=== PATIENT | female | born 2000 | race Caucasian/White ===

== ENCOUNTER 2025-03-23 08:24 | Outpatient (AMB) | payer OTHER, SELFPAY ==
[2025-03-23 08:26] VITALS: BP 110/70; PULSE 52; O2SAT 100; BMI 26.5
--- NOTE | 2025-03-23 08:26 | A.OFFVIS_ITS ---
Vital Signs 03/23/25 08:26 Height 5 ft 6 in Weight 164 lb 3.91 oz BMI 26.5 BP 110/70 Blood Pressure Location Rt brachial Position Sitting Pulse 52 Pulse Source Pulse Oximeter Pulse Oximetry (%) 100 Oxygen Delivery Method Room Air Intake Visit Reasons: 3 mo follow up Intake Note: Patient presents for follow up on Raynaud's today. Accompanied by: Self / Same As Patient Allergies No Known Allergies Allergy (Verified 02/24/25 12:59) HPI HPI 3 mo follow up: Details: She is experiencing soreness in her joints particularly in her hands and her shoulder. She has history of right shoulder dislocation in the past and has gone to physical therapy on multiple occasions. Morning stiffness lasts 30 minutes to an hour. No joint swelling. Raynaud's syndrome has been controlled since last visit. In the past she has taken sildenafil 20 mg daily and sometimes twice a day to control Raynaud's syndrome. In the past she was on nifedipine up to 90 mg daily without control of Raynaud's syndrome. She denies fevers, dyspnea, pleurisy, chest pain, oral ulcers, rash, urinary symptoms. Review of Systems Const All systems reviewed & are unremarkable except as noted in HPI and below Physical Exam Vital Signs: Last Vital Signs Pulse 52 03/23/25 08:26 BP 110/70 03/23/25 08:26 Pulse Ox 100 03/23/25 08:26 Oxygen Delivery Method Room Air 03/23/25 08:26 BMI result Body Mass Index 26.5 Const Other: General: Comfortable CVS: RRR Respiratory: clear to auscultation bilaterally. Good respiratory effort Skin: No lesions seen MSK: No tenderness of any joints. No synovitis. Normal range of motion of upper extremities and lower extremities. Assessment & Plan Assessment & Plan (1) Mixed connective tissue disease: Comment: In remission on hydroxychloroquine and Benlysta. Labs from December 2024 reviewed leukopenia and mild elevation in AST, which she did not have on August 2024 labs. She had alcohol prior to lab draw contributing to mild justin saminitis. We discussed importance of avoiding alcohol with her current immunosuppressive regimen. 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 Failed rituximab 2019. Previously treated with triple therapy with hydroxychloroquine, methotrexate and Benlysta from 2020 to present. Hydroxychloroquine restarted 03/20/2024. Last surveillance exam 06/19/2024 but OCT and visual field was not performed. Code(s): M35.1 - Other overlap syndromes Category: Medical Plan: Labs to assess disease and drug monitoring on high-risk medication ordered Continue Benlysta IV infusions every 4 weeks. Continue hydroxychloroquine 300 mg daily. She has an eye exam scheduled in May 2025. I have requested that she ensure that OCT and visual field test is performed. I am requesting last eye exam clinic note with OCT and visual field testing Return to clinic in 3 months (2) Raynaud disease without gangrene: Comment: Controlled with sildenafil 20 mg daily or b.i.d. previously failed nifedipine. Code(s): I73.00 - Raynaud's syndrome without gangrene Category: Medical Plan: Continue sildenafil 20 mg up to twice a day Continue conservative management with wearing gloves and thick socks in the winter Return to clinic in 3 months Orders: Orders Complement C3 Today M35.1 - Other overlap syndromes Complement C4 Today M35.1 - Other overlap syndromes Protein Creatinine Ratio, Ur Today M35.1 - Other overlap syndromes UA w Microscopic Today M35.1 - Other overlap syndromes Alanine Aminotransferase Today M35.1 - Other overlap syndromes Complete Blood Count Auto Diff Today Z79.60 - retirement (current) use of unspecified immunomodulators and immunosuppressants Creatinine Today Z79.60 - retirement (current) use of unspecified immunomodulators and immunosuppressants Anti DNA DS Antibody Today M35.1 - Other overlap syndromes C Reactive Protein Today M35.1 - Other overlap syndromes Erythrocyte Sedimentation Rate Today M35.1 - Other overlap syndromes Aspartate Amino Transferase Today M35.1 - Other overlap syndromes Coding Level of Care Code Est Pt Level 4 (24299) Complex EM visit Add On G2211 Diagnoses Mixed connective tissue disease M35.1 Raynaud disease without gangrene I73.00
--- OUTSIDE RECORDS SUMMARY | 2025-03-23 08:44 | XMS_ITS | Encounter Summary ---
Author Organization [facility] Address [address] [place] [address] Phone Care Team Providers Care Stationary Engineer Supervisor Name Role Phone Tita Carrillo MD Primary Care Provider [phone] Reason for Visit * Reason Onset Date Comments Med Refill 03/11/2019 Encounter Details Date Type Department Care Team (Late st Contact Info) Description 03/11/2019 Refill [facility], [address] [place] [address] Tita Carrillo MD [address] [place] [address] [address] [place] [address] Menorrhagia with irregular cycle Social History Tobacco Use Types Packs/Day Years Used Date Smoking Tobacco: Never Comments:Never Smoker Comments Unknown Sex and Gender Information Value Date Recorded Sex Assigned at Not on file Legal Sex Female 4:07 PM EST Gender Identity Not on file Sexual Orientation Straight 08/23/2019 10 :16 AM EDT documented as of this encounter Miscellaneous Notes * Telephone Encounter - Peggy Bethea MA - 03/11/2019 8:54 AM EDT Last HME 04/22/2018, no New HME scheduled at this time, Last med review at last HME . PCP not in office for extended period of time, request forwarded to [place] provider documented in this encounter Plan of Treatment Not on file documented as of this encounter Visit Diagnoses Diagnosis Menorrhagia with irregular cycle documented in this encounter Care Teams Stationary Engineer Supervisor Relationship Specialty Start Date End Date Tita Carrillo MD [address] [place] [address] [address] [place] [address] PCP - General Pediatrics 04/22/18 10/24/20 documented as of this encounter
--- OUTSIDE RECORDS SUMMARY | 2025-03-23 08:44 | XMS_ITS | Encounter Summary ---
Author Organization [facility] Address [address] [place] [id number] Phone Care Team Providers Care Debone Processing Supervisor Name Role Phone Tita Carrillo MD Primary Care Provider [phone] Reason for Visit * Reason Onset Date Comments Med Refill 05/19/2018 Encounter Details Date Type Department Care Team (Late st Contact Info) Description 05/19/2018 Refill [facility], [facility] [address] [address] [place] [address] Tita Carrillo MD [address] [place] [address] [address] [place] [address] Menorrhagia with irregular cycle Social History Tobacco [...] Telephone Encounter - Peggy Bethea MA - 05/19/2018 9:20 AM EDT Last HME 04/22/2018 * Telephone Encounter - Peggy Bethea MA - 05/19/2018 9:20 AM EDTFrom: Maria D Montiel To: Tita Carrillo MD Sent: 05/19/2018 7:00 AM EDT Subject: Medication Renewal Request Maria D Montiel would like a refill of the following medications: norgestimate-ethinyl estradiol (SPRINTEC 28) 0.25-35 MG-MCG per tablet [Juan David Landis MD] [id number] [address] [facility] Delivery method: Pickup Preferred pick-up date and time: 05/19/2018 4:00 PM Comment: documented in this encounter Plan of Treatment Not on file documented as of this encounter Visit Diagnoses Diagnosis Menorrhagia with irregular cycle documented in this encounter Care Teams Debone Processing Supervisor Relationship Specialty Start Date End Date Tita Carrillo MD [address] [place] [address] [address] [place] [address] PCP - General Pediatrics 04/22/18 10/24/20 documented as of this encounter
--- OUTSIDE RECORDS SUMMARY | 2025-03-23 08:44 | XMS_ITS | Encounter Summary ---
Author Organization [facility] Address [address] [place] [address] Phone Care Team Providers Care Real Time Trader Name Role Phone Tita Carrillo MD Primary Care Provider [phone] Reason for Visit * Reason Comments Med Refill Encounter Details Date Type Department Care Team (Late st Contact Info) Description 08/26/2019 Refill [facility], [facility] [address] [address] [place] [address] Tita Carrillo MD [address] [place] [address] [address] [place] [address] Menorrhagia with irregular cycle Social History Tobacco Use Types Packs/Day Years Used Date Smoking Tobacco: Never Comments:Never Smoker Hunger/Food Answer Date Recorded No 08/23/2019 Stable Housing Answer Date Recorded 0 08/23/2019 Transportation Concerns Answer Date Rec orded No 08/23/2019 Hazards in Home Answer Date Recorded No 08/23/2019 Financing Utilities Answer Date Recorde d No 08/23/2019 Safety at Home Answer Date Recorded No 08/23/2019 Outside Support Answer Date Recorded No 08/23/2019 Understanding Health Concerns Answer Da te Recorded No 08/23/2019 Financing Health Concerns Answer Date R ecorded No 08/23/2019 Missing School or Work Answer Date Parth rded No 08/23/2019 Comments Unknown Sex and Gender Information Value Date Recorded Sex Assigned at Not on file Legal Sex Female 4:07 PM EST Gender Identity Not on file Sexual Orientation Straight 08/23/2019 10 :16 AM EDT documented as of this encounter Miscellaneous Notes * Telephone Encounter - Cady Evangelista LPN - 08/26/2019 8:36 AM EDT Last HME: 08/23/19 Rx pended documented in this encounter Plan of Treatment Not on file documented as of this encounter Visit Diagnoses Diagnosis Menorrhagia with irregular cycle documented in this encounter Care Teams Real Time Trader Relationship Specialty Start Date End Date Tita Carrillo MD [address] [place] [address] [address] [place] [address] PCP - General Pediatrics 04/22/18 10/24/20 documented as of this encounter
--- OUTSIDE RECORDS SUMMARY | 2025-03-23 08:44 | XMS_ITS | Encounter Summary ---
Author Organization [facility] Address [address] [place] [address] Phone Care Team Providers Care Crust Sorter Name Role Phone Tita Carrillo MD Primary Care Provider [phone] Reason for Visit * Reason Onset Date Comments Med Refill 09/21/2018 Encounter Details Date Type Department Care Team (Late st Contact Info) Description 09/21/2018 Refill [facility], [facility] [address] [address] [place] [address] Tita Carrillo MD [address] [place] [address] [address] [place] [address] Menorrhagia with irregular cycle Social History Tobacco Use Types Packs/Day Years Used Date Smoking Tobacco: Never Comments:Never Smoker Comments Unknown Sex and Gender Information Value Date Recorded Sex Assigned at Not on file Legal Sex Female 4:07 PM EST Gender Identity Not on file Sexual Orientation Straight 08/23/2019 10 :16 AM EDT documented as of this encounter Miscellaneous Notes * Telephone Encounter - Brenna Moser - 09/22/2018 3:18 PM EDT Call made to mom, she has scheduled asthma review * Telephone Encounter - Tita Carrillo MD - 09/22/2018 12:43 PM EDT Rx sent. Due soon for f/u asthma and flu vaccine. Please call. * Telephone Encounter - Peggy Bethea MA - 09/22/2018 9:40 AM EDT Last HME 04/22/2018,this Rx was generated on 09/21/2018. Message request forwarded to PCP for review/ refill * Telephone Encounter - Razia Cedeño MA - 09/22/2018 9:38 AM EDT Last HME 04/22/18. Rx pended. * Telephone Encounter - Razia Cedeño MA - 09/22/2018 9:38 AM EDTFrom: Maria D Montiel To: Tita Carrillo MD Sent: 09/21/2018 7:05 PM EDT Subject: Medication Renewal Request Maria D Montiel would like a refill of the following medications: norgestimate-ethinyl estradiol (SPRINTEC 28) 0.25-35 MG-MCG per tablet [Tita Carrillo MD] Preferred pharmacy: [id number] - [place], [place] - [address] [facility] Delivery method: Pickup Preferred pick-up date and time: 09/22/2018 5:00 PM Comment: documented in this encounter Plan of Treatment Not on file documented as of this encounter Visit Diagnoses Diagnosis Menorrhagia with irregular cycle documented in this encounter Care Teams Crust Sorter Relationship Specialty Start Date End Date Tita Carrillo MD [address] [place] [address] [address] [place] [address] PCP - General Pediatrics 04/22/18 10/24/20 documented as of this encounter
--- OUTSIDE RECORDS SUMMARY | 2025-03-23 08:44 | XMS_ITS | Encounter Summary ---
Author Organization [facility] Address [address] [place] [address] Phone Care Team Providers Care Urologic Nurse Name Role Phone Tita Carrillo MD Primary Care Provider [phone] Encounter Details Date Type Department Care Team (Late st Contact Info) Description 03/28/2017 Documentation [facility], [address] [place] [address] Peggy Bethea MA Social History Tobacco Use Types Packs/Day Years Used Date Smoking Tobacco: Never Comments:Never Smoker Comments No Sex and Gender Information Value Date Recorded Sex Assigned at Not on file Legal Sex Female 4:07 PM EST Gender Identity Not on file Sexual Orientation Straight 08/23/2019 10 :16 AM EDT documented as of this encounter Plan of Treatment Not on file documented as of this encounter Visit Diagnoses Not on filedocumented in this encounter Care Teams Urologic Nurse Relationship Specialty Start Date End Date Tita Carrillo MD [address] [place] [address] [address] [place] [address] PCP - General Pediatrics 04/22/18 10/24/20 documented as of this encounter
--- OUTSIDE RECORDS SUMMARY | 2025-03-23 08:44 | XMS_ITS | Encounter Summary ---
Author Organization [facility] Address [address] [place] [address] Phone Care Team Providers Care Plant Custodian Name Role Phone Juan David Landis MD Primary Care Provider Encounter Details Date Type Department Care Team (Late st Contact Info) Description 07/08/2024 Ancillary Orders [facility], X-Ray - [address] [place] [address] Mainor Valdivia PA [address] [place] [address] Right shoulder pain, unspecified chronicity (Primary Dx) Social History Tobacco Use Types Packs/Day Years Used Date Smoking Tobacco: Never Assessed Education Answer Date Recorded Are you interested in more education? Not on oskar e 03/28/2023 Are you concerned about learning? Not on file 03/28/2023 No 03/28/2023 No 03/28/2023 Digital Access Answer Date Recorded No 04/28/2023 No 04/28/2023 No 04/28/2023 Reliable internet access at home? Not on file 04/28/2023 Device with a working camera? Not on file Sex and Gender Information Value Date Recorded Sex Assigned at Not on file Gender Identity Not on file Sexual Orientation Not on file documented as of this encounter Plan of Treatment Not on file documented as of this encounter Results * XR SHOULDER 2 VIEWS (RIGHT) (07/08/2024 3:43 PM EDT) Anatomical Region Laterality Modality Shoulder Right Computed Radiogr aphy 07/10/2024 7:34 AM EDT Impressions 07/10/2024 7:35 AM EDT No fracture or dislocation. Narrative 07/10/2024 7:35 AM EDT XR SHOULDER 2 OR MORE VIEWS (RIGHT) Referring clinician's provided indication for this examination in Epic: Pain COMPARISON: FINDINGS: No fracture. Normal glenohumeral alignment and joint space. Normal acromioclavicular joint. Procedure Note Angel Palafox MD - 07/10/2024 XR SHOULDER 2 OR MORE VIEWS (RIGHT) Referring clinician's provided indication for this examination in Epic:Pain COMPARISON: FINDINGS: No fracture. Normal glenohumeral alignment and joint space. Normalacromioclavicular joint. IMPRESSION: No fracture or dislocation. Mainor Valdivia PA IMG XR UPPER EXTREMI TY documented in this encounter Visit Diagnoses Diagnosis Right shoulder pain, unspecified chronicity- Primary Right shoulder pain, unspecified chronicity documented in this encounter Care Teams Plant Custodian Relationship Specialty Start Date End Date Juan David Landis MD [address] [place] [address] [address] [place] [address] PCP - General 12/04/17 documented as of this encounter Additional Source Comments The information contained in this document represents components of the legal health record. It is not the complete legal health record.[facility]
--- OUTSIDE RECORDS SUMMARY | 2025-03-23 08:44 | XMS_ITS | Clinical Summary ---
Author Organization [facility] Address [address] [place] [address] Phone Care Team Providers Care Dog And Cat Food Cook Name Role Phone Unavailable Primary Care Provider Unavailabl e Allergies No known active allergies Medications fluticasone (FLOVENT DISKUS) 250 MCG/BLIST diskus inhalerIndication s:Moderate persistent asthma without complication Inhale 1 puff 2 (two) times a day. Rinse mouth with water after use to reduce aftertaste and incidence of candidiasis. Do not swallow. 180 each 4 7 Active albuterol HFA (PROAIR HFA) 108 (90 Base) MCG/ACT inhalerIndication s:Mild intermittent asthma without complication Inhale 2 puffs every 4 (four) hours as needed for wheezing. 3 Units 2 9 Active SPRINTEC 28 0.25-35 MG-MCG per tabletIndications :Menorrhagia with irregular cycle TAKE ONE TABLET BY MOUTH EVERY DAY 84 tablet 3 9 Active diclofenac 75 MG EC tablet Take 75 mg by mouth 2 (two) times a day. 3 0 Active omeprazole 20 MG delayed-release capsule Take 20 mg by mouth once daily. 3 0 Active predniSONE 10 MG tablet Take 5 mg by mouth daily. 0 9 Active hydroxychloroquin e 200 MG tablet Take 400 mg by mouth once daily. 5 0 Active Methotrexate Sodium 50 MG/2ML injection Inject 1 mL into the muscle once a week. 3 9 Active dicyclomine 10 MG capsule Take 10 mg by mouth 2 (two) times a day. 6 0 Active NIFEdipine CC 60 MG 24 hr tablet Take 60 mg by mouth nightly. 3 0 Active Active Problems Problem Noted Date Diagnosed Date Tension headache 02/10/2020 Overview (02/10/2020): Seen by neurologist at [facility], felt to be due to arthritis condition, stress and treatment. Chronic abdominal pain 11/20/2019 Overview (11/20/2019): IBS-M? Seeing GI. R/o crohn's and r/o eosinophilic esophagitis. Raynaud disease 10/06/2019 Assessment & Plan (10/06/2019 5:17 PM EST): Started on nifedipine after ER visit and consult with Dr. Lowe. Seems to be helping. MCTD (mixed connective tissue disease) 9 Overview (10/27/2020): Under evaluation for possible arthritis process although inflammatory markers are negative. Seeing Dr. Lowe. Plans second opinion through [facility]. Better on prednisone, starting methtrexate. Will also see pulmonary and GI. Now on Ritixumab with improvement of symptoms. Seeing [facility] for care but will also see land leveler in [place] where she will be attending school. Assessment & Plan (10/06/2019 5:18 PM EST): Under evaluation with f/u with Dr. Lowe tomorrow. More clearly arthritis process now. Assessment & Plan (08/24/2019 11:42 AM EDT): Seeing Dr. Lowe, probably an arthritis like illness, taking meloxicam daily as trial. May need to explore GI issues in future. Assessment & Plan (08/11/2019 3:44 PM EDT): She will go have additional bloodwork drawn today. Begin referral to rheumatology. Menorrhagia with regular cycle 11/04/2017 Overview (04/22/2018): Some irregularity in August, though mostly regular cycle. Labs ordered 11/04/17 to screen for anemia. Controlled on OCPs. Assessment & Plan (10/06/2019 5:17 PM EST): On Sprintec without side effects. No change at this time. Assessment & Plan (08/24/2019 11:41 AM EDT): Doing well on Sprintec with well controlled menses and no side effects. Assessment & Plan (04/22/2018 7:13 PM EDT): Continue OCPs for control of symptoms. Body mass index, pediatric, 85th percentile to less than 95th percentile for age 1110/18/2010 Assessment & Plan (08/24/2019 11:40 AM EDT): She stays active with exercise except with this recent joint pain, eats vegetarian diet, nondairy. Assessment & Plan (04/22/2018 7:17 PM EDT): Discussed more exercise and better food choices to help maintain or decrease weight. Moderate persistent asthma without complication 10/18/2010 Overview (03/28/2017): Followed by Dr Thibodeaux for unusual presentation of asthma ( with lightheadedness and fainting)-- + methacholine challenge. Now on daily preventive Flovent. Rarely needs Albuterol ( with exercise) Assessment & Plan (10/06/2019 5:17 PM EST): Doing well overall although should be taking flovent more regularly. Assessment & Plan (08/24/2019 11:41 AM EDT): Not great about compliance with Flovent but does better when she's on it regularly. Albuterol MDI prn. Assessment & Plan (09/30/2018 12:34 PM EDT): Has had very few issues with asthma lately. Is really only taking Flovent once a week. Not much use of albuterol. Has not been doing sports since she is now working. Urged to do Flovent once daily as preventive medication. Albuterol prn for flareups. Assessment & Plan (04/22/2018 7:17 PM EDT): Needs to remember to use Flovent. Recent exacerbation treated with azithromycin and prednisone, slowly improving . Mom notes had been missing Flovent more often. Reminded to use daily for best control. Assessment & Plan (04/13/2018 3:15 PM EDT): History of asthma, now presenting with evidence of pneumonia. Current symptoms do not seem to correlated with asthma exacerbation, mom agrees. Will continue Flovent and Albuterol while pneumonia is treated, will defer oral steroids for now. Discussed correct use of albuterol during asthma exacerbations. Give 2 puffs every 4 hours as needed during current illness. Importance of ALWAYS using spacer device with inhaler. Reviewed signs of worsening asthma and when to call office. Call if no improvement in 2 days, sooner if new or worsening symptoms, such as chest pain, worsening cough, difficulty breathing, or poor response to treatments. Assessment & Plan (03/28/2017 6:13 AM EDT): Continue preventive treatment with Flovent ( consistently); treat with Albuterol prn and prior to exercise. Return to specialist as planned. Resolved Problems Problem Noted Date Diagnosed Date Resolved Date Shoulder dislocation, right, initial encounter 01/07/2019 08/23/2019 Overview (01/07/2019): Reduced at [facility] under sedation Slow transit constipation 08/12/2018 Assessment & Plan (08/12/2018 1:35 PM EDT): Given xray results symptoms are likely constipation related. Advised Miralax 1 cap daily and fiber supplement. May get more diarrhea until abdominal stool load reduces. Will call mom later in day. Labs ordered but could consider holding off since symptoms likely related to constipation. Concussion with no loss of consciousness 01/02/2017 02/13/2017 Immunizations Immunization Administration Dates Next Due DTaP 5 09/04/2007, 4,02/15/2003,12/22,2002 H1N1 Inj 09/21/2009 HPV Vaccine 9 Valent 03/27/2017,03/20/2016 Hep A, ped/adol 08/23/2019,04/22/2018 Hep B, ped/adol 05/24/2003,2002,2002 Hib (HbOC) 01/04/2004, 3,2002,10/18 IPV 09/04/2007, 3,2002,10/18 Influenza Split 09/14/2008 Influenza, injectable, quadr ivalent, preservative free 10/06/2019,09/30/2018 Influenza, injectable, triva lent, preservative free 12/07/2013,11/27/2012,10/22/2011,09/20,09/21/2009 MMR 09/04/2007,01/04/2004 Meningococcal Conj (Menactra) MCV4P 08/23/2019,0 03/20/2016 Pneumococcal Conjugate 02/15/2003,2002, Tdap 12/07/2013 Varicella 09/04/2007,08/24/2003 Family History Medical History Relation Name Comments Allergic rhinitis Brother Asthma Brother Allergic rhinitis Sister Relation Name Status Comments Brother Sister Social History Tobacco Use Types Packs/Day Years Used Date Smoking Tobacco: Never Comments:Never Smoker Hunger/Food Answer Date Recorded No 12/08/2020 Stable Housing Answer Date Recorded No 12/08/2020 Transportation Concerns Answer Date Rec orded No 12/08/2020 Hazards in Home Answer Date Recorded No 12/08/2020 Financing Utilities Answer Date Recorde d No 12/08/2020 Safety at Home Answer Date Recorded No 12/08/2020 Outside Support Answer Date Recorded No 12/08/2020 Understanding Health Concerns Answer Da te Recorded No 12/08/2020 Financing Health Concerns Answer Date R ecorded No 12/08/2020 Missing School or Work Answer Date Parth rded No 12/08/2020 Comments Unknown Sex and Gender Information Value Date Recorded Sex Assigned at Not on file Legal Sex Female 4:07 PM EST Gender Identity Not on file Sexual Orientation Straight 08/23/2019 10 :16 AM EDT Last Filed Vital Signs Vital Sign Reading Time Taken Comments Blood Pressure 110/62 02/10/2020 5:16 PM EDT Pulse 79 02/10/2020 5:16 PM EDT Temperature 36.9 ??C (98.4 ??F) 02/10/2020 5:16 PM ED T Respiratory Rate 21 09/30/2018 8:59 AM EDT Oxygen Saturation 99% 02/10/2020 5:16 PM EDT Inhaled Oxygen Concentration - - Weight 76.6 kg (168 lb 14.4 oz) 02/10/2020 5:16 PM EDT Height 168.9 cm (5' 6.5 ) 08/23/2019 8:44 AM EDT Body Mass Index - - Plan of Treatment Health Maintenance Due Date Last Done Comments Men B Vaccine (1 of 2 - Standard) 2018 DTaP,Tdap,and Td Vaccines (7 - Td or Tdap) 12/07/2023 12/07/2013, 09/04/2007, 02/22/2004, Additional history exists Influenza Vaccines (#1) 2024 10/06/20 19, 09/30/2018, 12/07/2013, Additional history exists COVID-19 Vaccine ( season) 2024 Pneumococcal Vaccine Aged Out 02/15/2003, 2002, 2002 No longer eligible based on patient's age to complete this topic Hepatitis B Vaccines Completed 05/24/2003, 2002, 2002 HIB Vaccines Completed 01/04/2004, 01/29, 2002, Additional history exists IPV Vaccines Completed 09/04/2007, 08/02, 2002, Additional history exists MMR Vaccines Completed 09/04/2007, 01/04/2004 Varicella Vaccines Completed 09/04/2007, 08/24/2003 HPV Vaccines Completed 03/27/2017, 03/20/2016 Hepatitis A Vaccines Completed 08/23/2019, 04/22/20 18 Meningococcal Vaccine Completed 08/23/2019, 016 Procedures * Due to [place] state law, this organization might not be sharing sensitive test results. Procedure Name Priority Date/Time Associated Diagnosis Comments CHLAMYDIA TRACHOMATIS, AMPLIFIED Routine 08/23/2019 9:22 AM EDT Encounter for screening examination for sexually transmitted disease from Last 3 Months or Most Recently Relevant to Health Maintenance Results * Due to [place] state law, this organization might not be sharing sensitive test results. * Chlamydia trachomatis, Amplified (08/23/2019 9:22 AM EDT) Chlamydia Trachomatis, DNA Probe NEGATIVE (NEG) [facility] Comment: No Chlamydia Trachomatis RNA detected in this patient's sample ? (REFERENCE RANGE/NORMAL VALUE: NOT DETECTED) ? Note: This test uses jelly filter tender- mediated amplification method to detect rRNA from C. Trachomatis Testing performed or reported by [facility], a Service of [facility], [address] [place] [id number] Urine (Urine) 08/23/2019 9:2 2 AM EDT 08/23/2019 4:02 PM EDT Tita Carrillo MD LAB BLOOD ORDERABLES Final Resul t Performing Organization Address City/State/[facility] Co de Phone Number [facility] from Last 3 Months or Most Recently Relevant to Health Maintenance Insurance [facility] [employer]/[place] [address] [place] [id number]
--- OUTSIDE RECORDS SUMMARY | 2025-03-23 08:44 | XMS_ITS | Encounter Summary ---
Author Organization [facility] Address [address] [place] [address] Phone Care Team Providers Care Pigment Pusher Name Role Phone Tita Carrillo MD Primary Care Provider [phone] Encounter Details Date Type Department Care Team (Late st Contact Info) Description 09/20/2010 Nurse Only [address] [address] Social History Tobacco Use Types Packs/Day Years Used Date Smoking Tobacco: Never Assessed Comments Unknown Sex and Gender Information Value Date Recorded Sex Assigned at Not on file Legal Sex Female 4:07 PM EST Gender Identity Not on file Sexual Orientation Straight 08/23/2019 10 :16 AM EDT documented as of this encounter Nursing Notes * UNKNOWN, HISTORICAL - 09/20/2010 10:07 AM EDT Maria D Montiel 2000 NURSE NOTE/VERBAL ORDERS Office/Outpatient Visit Visit Date: Emy, Sep 20, 2010 10:07 am Provider: Susannah Dunlap RN (Police Patrol Lieutenant: Snow iDaz MD; Propagator Laborer: Susannah Dunlap RN) Location: [facility]. ECTIVE: CC: She is here for the Flu Clinic. Presents with Dad HPI: Fever or illness is not present today. No trouble breathing or hives after eating eggs She has not had a reaction to the flu vaccine or other immunization. Patient has a known chronic health condition of Asthma No current symptoms or complaints. Has not had any recent asthma symptoms. Current medications: None. Last used albuterol 1 yr ago Flu vaccine VIS was given today.(interim 07/10/10) There were no questions or concerns voiced at today's visit. OBJECTIVE: Exams: GENERAL APPEARANCE: Alert, active, looks well, mood appropriate ASSESSMENT: V081 Flu Clinic ORDERS: Procedures Ordered: Influenza virus vaccine, split virus, preservative free, > 3 years, for intramuscular use Immunization administration (includes percutaneous, intradermal, subcutaneous or intramuscular injec PLAN: Flu Clinic Influenza vaccine > 3 yr (Preservative Free) given No contraindications noted for flu vaccines. Tolerated well, left office in good condition. Patient needs to return for second dose >/= 28 days. Orders: Influenza virus vaccine, split virus, preservative free, > 3 years, for intramuscular use Immunization administration (includes percutaneous, intradermal, subcutaneous or intramuscular injec CHARGE CAPTURE: Primary Diagnosis: V0 Flu Clinic Orders: [id number] Influenza virus vaccine, split virus, preservative free, > 3 years, for intramuscular use [id number] Immunization administration (includes percutaneous, intradermal, subcutaneous or intramuscular injec ADDENDUMS: Addendum: 09/20/2010 05:01 PM - Susannah Dunlap Flu is UTD. Does Not need a 2nd Dose. documented in this encounter Plan of Treatment Not on file documented as of this encounter Visit Diagnoses Not on filedocumented in this encounter Care Teams Pigment Pusher Relationship Specialty Start Date End Date Tita Carrillo MD [address] [place] [address] [address] [place] [address] PCP - General Pediatrics 04/22/18 10/24/20 documented as of this encounter
--- OUTSIDE RECORDS SUMMARY | 2025-03-23 08:44 | XMS_ITS | Clinical Summary ---
Author Organization [facility] Address [address] [place], [place] [address] Phone Care Team Providers Care Sales Counselor Name Role Phone Juan David Landis MD Primary Care Provider Social History Tobacco Use Types Packs/Day Years [...] on file Sexual Orientation Not on file Last Filed Vital Signs Vital Sign Reading Time Taken Comments Blood Pressure 115/60 07/25/2015 1:25 AM EDT Pulse 54 07/25/2015 1:25 AM EDT Temperature - - Respiratory Rate - - Oxygen Saturation - - Inhaled Oxygen Concentration - - Weight 64 kg (141 lb) 07/25/2015 1:25 AM EDT Height 156.8 cm (5' 1.75 ) 07/25/2015 1:25 AM ED T Body Mass Index 26 07/25/2015 1:25 AM EDT Plan of Treatment Not on file Medical Devices Not on file Maria D Montiel R Personal/Family Self 2000 [address] [place] [address] Maria D Montiel R Personal/Family Self 2000 [address] [place] [address] Eddy Montiela R Personal/Family Self 2000 [address] [place] [address] Eddy Montiela R Personal/Family Self 2000 [address] [place] [address] Maria D Montiel R Personal/Family Self 2000 [address] [facility] [place] [address] LAMINE,DOV Personal/Family Mother [address] [place] [address] LAMINE,DOV Personal/Family Mother [address] [place] [address] LAMINE,DOV Personal/Family Mother [address] [place] [address] Care Teams Sales Counselor Relationship Specialty Start Date End Date Juan David Landis MD [address] [place] [address] [address] [place] [address] PCP - General 12/04/17 Additional Source Comments The information contained in this document represents components of the legal health record. It is not the complete legal health record.[facility]
--- OUTSIDE RECORDS SUMMARY | 2025-03-23 08:44 | XMS_ITS | Encounter Summary ---
Author Organization [facility] Address [address] [place], [place] [id number] Phone Care Team Providers Care Accounts Officer Name Role Phone Tita Carrillo MD Primary Care Provider [phone] Encounter Details Date Type Department Care Team (Late st Contact Info) Description 07/18/2016 Orders Only [facility], [address] [place] [address] Social History Tobacco Use Types Packs/Day Years [...] on filedocumented in this encounter Care Teams Accounts Officer Relationship Specialty Start Date End Date Tita Carrillo MD [address] [place] [address] [address] [place] [address] PCP - General Pediatrics 04/22/18 10/24/20 documented as of this encounter
--- OUTSIDE RECORDS SUMMARY | 2025-03-23 08:44 | XMS_ITS | Encounter Summary ---
Author Organization [facility] Address [address] [facility] [address] [place] [address] Phone Care Team Providers Care Pile Trimmer Name Role Phone Juan David Landis MD Primary Care Provider Encounter Details Date Type Department Care Team (Late st Contact Info) Description 06/26/2020 Transcribe Orders Virtual Department [address] [place] [address] Lu Chopra PA [address] [place] [address] [email or web address] Exposure to SARS-associated coronavirus (Primary Dx) Social History Tobacco Use Types Packs/Day Years Used Date Smoking Tobacco: Never Assessed Sex and Gender Information Value Date Recorded Sex Assigned at Not on file Gender Identity Not on file Sexual Orientation Not on file documented as of this encounter Plan of Treatment Not on file documented as of this encounter Results * COVID-19 PCR Order (06/28/2020 11:17 AM EDT) Specimen Source NASOPHARYNGEAL SWAB (JAWBONE PULLER) [facility] COVID-19 Comment POSSIBLE EXPOSURE [facility] COVID Testing Status Sent to [facility] Other 06/28/2020 11:1 7 AM EDT 06/28/2020 11:28 AM EDT Lu CHOWDARY BODY FLUIDS AND STOOLS ORDERABLES [facility] [address] [place] [address] documented in this encounter Visit Diagnoses Diagnosis Exposure to SARS-associated coronavirus- Primary documented in this encounter Additional Health Concerns Infection Onset Date Last Indicated Resolved Time CoV-Exposed Comment:Recent close contact 06/26/2020 06/26/2020 07/10/2020 4:56 AM EDT documented as of this encounter Care Teams Pile Trimmer Relationship Specialty Start Date End Date Juan David Landis MD [address] [place] [address] [address] [place] [address] PCP - General 12/04/17 documented as of this encounter Additional Source Comments The information contained in this document represents components of the legal health record. It is not the complete legal health record.[facility]
== END 2025-03-23 08:59 | disposition home or self-care (01) ==
LOC: HO.RHES 08:25
PROVIDERS: PCP Internal Medicine Rheumatology; Visit Provider Internal Medicine Rheumatology
DX: M35.1 Other overlap syndromes (principal); I73.00 Raynaud's syndrome without gangrene
CPT/HCPCS: 99214

== ENCOUNTER 2025-03-23 08:24 | Outpatient (REF) | payer OTHER, SELFPAY ==
--- OUTSIDE RECORDS SUMMARY | 2025-03-23 09:49 | XMS_ITS | Clinical Summary ---
Author Organization [facility] Address [address] [place], [place] [phone] Phone Care Team Providers Care Barback Name Role Phone Juan David Landis MD [...] on file Medical Devices Not on file Care Teams Barback Relationship Specialty Start Date End Date Juan David Landis MD [address] [place] [address] [address] [place] [address] PCP - General 12/04/17 Additional Source Comments The information contained in this document represents components of the legal health record. It is not the complete legal health record.[facility]
--- OUTSIDE RECORDS SUMMARY | 2025-03-23 09:49 | XMS_ITS | Encounter Summary ---
Author Organization [facility] Address [address] [place] [address] Phone Care Team Providers Care Fieldwork Coordinator Name Role Phone Tita Carrillo MD Primary Care Provider [phone] Reason for Visit * Reason Onset Date Comments Med Refill 05/19/2018 Encounter Details Date Type Department Care Team (Late st Contact Info) Description 05/19/2018 Refill [facility], [facility] [address] [address] [place] [address] Tita Carrillo MD [address] [place] [address] [address] [place] [address] Menorrhagia with irregular cycle Social History Tobacco [...] pharmacy: [id number] [place] [facility] [address] [facility] Delivery method: Pickup Preferred pick-up date and time: 05/19/2018 4:00 PM Comment: documented in this encounter Plan of Treatment Not on file documented as of this encounter Visit Diagnoses Diagnosis Menorrhagia with irregular cycle documented in this encounter Care Teams Fieldwork Coordinator Relationship Specialty Start Date End Date Tita Carrillo MD [address] [place] [address] [address] [place] [address] PCP - General Pediatrics 04/22/18 10/24/20 documented as of this encounter
--- OUTSIDE RECORDS SUMMARY | 2025-03-23 09:49 | XMS_ITS | Encounter Summary ---
Author Organization [facility] Address [address] [place] [address] Phone Care Team Providers Care Editor & Co Founder Name Role Phone Tita Carrillo MD Primary Care Provider [phone] Reason for Visit * Reason Comments Med Refill Encounter Details Date Type Department Care Team (Late st Contact Info) Description 08/26/2019 Refill [facility], [facility] [address] [address] [place] [address] Tita Carrillo MD [address] [place] [address] [address] [place] [address] Menorrhagia with irregular cycle Social History Tobacco [...] cycle documented in this encounter Care Teams Editor & Co Founder Relationship Specialty Start Date End Date Tita Carrillo MD [address] [place] [address] [address] [place] [address] PCP - General Pediatrics 04/22/18 10/24/20 documented as of this encounter
--- OUTSIDE RECORDS SUMMARY | 2025-03-23 09:49 | XMS_ITS | Encounter Summary ---
Author Organization [facility] Address [address] [place] [address] Phone Care Team Providers Care High Voltage Electrician Name Role Phone Tita Carrillo MD Primary Care Provider [phone] Reason for Visit * Reason Onset Date Comments Med Refill 09/21/2018 Encounter Details Date Type Department Care Team (Late st Contact Info) Description 09/21/2018 Refill [place] [facility], [facility] [address] [address] [place] [address] Tita Carrillo MD [address] [place] [address] [address] [place] [address] Menorrhagia with irregular cycle Social History Tobacco [...] [Tita Carrillo MD] Preferred pharmacy: [id number] - [place], [place] - [address] [facility] Delivery method: Pickup Preferred pick-up date and time: 09/22/2018 5:00 PM Comment: documented in this encounter Plan of Treatment Not on file documented as of this encounter Visit Diagnoses Diagnosis Menorrhagia with irregular cycle documented in this encounter Care Teams High Voltage Electrician Relationship Specialty Start Date End Date Tita Carrillo MD [address] [place] [address] [address] [place] [address] PCP - General Pediatrics 04/22/18 10/24/20 documented as of this encounter
--- OUTSIDE RECORDS SUMMARY | 2025-03-23 09:49 | XMS_ITS | Encounter Summary ---
Author Organization [facility] Address [address] [place] [address] Phone Care Team Providers Care Crackling Press Operator Name Role Phone Tita Carrillo MD Primary Care Provider [phone] Encounter Details Date Type Department Care Team (Late st Contact Info) Description 09/20/2010 Nurse Only [address] [address] Social History Tobacco Use Types Packs/Day Years [...] 2010 10:07 am Provider: Susannah Dunlap RN (Crowning Hammer Operator: Snow Diaz MD; Treasury Associate: Susannah Dunlap RN) Location: [facility]. ECTIVE: CC: She is here for the [...] CAPTURE: Primary Diagnosis: V0 Flu Clinic Orders: [id number] Influenza virus vaccine, split virus, preservative free, > 3 years, for intramuscular use [id number] Immunization administration (includes percutaneous, intradermal, subcutaneous or intramuscular injec ADDENDUMS: Addendum: 09/20/2010 05:01 PM - Susannah Dunlap Flu is UTD. Does Not need a 2nd Dose. documented in this encounter Plan of Treatment Not on file documented as of this encounter Visit Diagnoses Not on filedocumented in this encounter Care Teams Crackling Press Operator Relationship Specialty Start Date End Date Tita Carrillo MD [address] [place] [address] [address] [place] [address] PCP - General Pediatrics 04/22/18 10/24/20 documented as of this encounter
--- OUTSIDE RECORDS SUMMARY | 2025-03-23 09:49 | XMS_ITS | Clinical Summary ---
Author Organization [facility] Address [address] [place] [address] Phone Care Team Providers Care Tool Operator Name Role Phone Unavailable Primary Care Provider [...] 02/10/2020 Overview (02/10/2020): Seen by neurologist at [facility], felt to be due to arthritis condition, [...] Seeing Dr. Lowe. Plans second opinion through [facility]. Better on prednisone, starting methtrexate. Will also see pulmonary and GI. Now on Ritixumab with improvement of symptoms. Seeing [facility] for care but will also see bottom scrubber in [place] where she will be attending school. Assessment [...] encounter 01/07/2019 08/23/2019 Overview (01/07/2019): Reduced at [facility] under sedation Slow transit constipation 08/12/2018 [...] Completed 08/23/2019, 016 Procedures * Due to [place] state law, this organization might not be sharing sensitive test results. Procedure Name Priority Date/Time Associated Diagnosis Comments CHLAMYDIA TRACHOMATIS, AMPLIFIED Routine 08/23/2019 9:22 AM EDT Encounter for screening examination for sexually transmitted disease from Last 3 Months or Most Recently Relevant to Health Maintenance Results * Due to [place] state law, this organization might not be sharing sensitive test results. * Chlamydia trachomatis, Amplified (08/23/2019 9:22 AM EDT) Chlamydia Trachomatis, DNA Probe NEGATIVE (NEG) [facility] Comment: No Chlamydia Trachomatis RNA detected in this patient's sample ? (REFERENCE RANGE/NORMAL VALUE: NOT DETECTED) ? Note: This test uses languages and literature instructor- mediated amplification method to detect rRNA from C. Trachomatis Testing performed or reported by [facility], a Service of [facility], [address] [place] [address] Urine (Urine) 08/23/2019 9:2 2 AM EDT 08/23/2019 4:02 PM EDT Tita Carrillo MD LAB BLOOD ORDERABLES Final Resul t Performing Organization Address City/State/[facility] Co de Phone Number [facility] from Last 3 Months or Most Recently Relevant to Health Maintenance Insurance [facility] [employer]/[place] [address] [id number]
--- OUTSIDE RECORDS SUMMARY | 2025-03-23 09:49 | XMS_ITS | Encounter Summary ---
Author Organization [facility] Address [address] [place] [address] Phone Care Team Providers Care Yardage Control Operator Forming Name Role Phone Tita Carrillo MD Primary Care Provider [phone] Encounter Details Date Type Department Care Team (Late st Contact Info) Description 03/28/2017 Documentation [facility], [address] [place] [address] Peggy Bethea [place] Social History Tobacco Use [...] on filedocumented in this encounter Care Teams Yardage Control Operator Forming Relationship Specialty Start Date End Date Tita Carrillo MD [address] [place] [address] [address] [place] [address] PCP - General Pediatrics 04/22/18 10/24/20 documented as of this encounter
--- OUTSIDE RECORDS SUMMARY | 2025-03-23 09:49 | XMS_ITS | Encounter Summary ---
Author Organization [facility] Address [address] [place], [place] [address] Phone Care Team Providers Care Hoe Worker Name Role Phone Tita Carrillo MD Primary Care Provider [phone] Encounter Details Date Type Department Care Team (Late st Contact Info) Description 07/18/2016 Orders Only [facility], [address] [place] [address] Social History Tobacco Use Types Packs/Day Years [...] on filedocumented in this encounter Care Teams Hoe Worker Relationship Specialty Start Date End Date Tita Carrillo MD [address] [place] [address] [address] [place] [address] PCP - General Pediatrics 04/22/18 10/24/20 documented as of this encounter
--- OUTSIDE RECORDS SUMMARY | 2025-03-23 09:49 | XMS_ITS | Encounter Summary ---
Author Organization [facility] Address [address] [facility] [address] [place] [address] Phone Care Team Providers Care Director Of Enterprise Architecture Name Role Phone Juan David Landis MD Primary Care Provider Encounter Details Date Type Department Care Team (Late st Contact Info) Description 06/26/2020 Transcribe Orders Virtual Department [address] [place] [address] Lu Chopra PA [address] [place] [address] [email or web address] Exposure to SARS-associated coronavirus (Primary Dx) Social [...] 11:17 AM EDT) Specimen Source NASOPHARYNGEAL SWAB (COMMERCIAL DRAFTER) [facility] COVID-19 Comment POSSIBLE EXPOSURE [facility] COVID Testing Status Sent to [facility] Other 06/28/2020 11:1 7 AM EDT 06/28/2020 11:28 AM EDT Lu CHOWDARY BODY FLUIDS AND STOOLS ORDERABLES [facility] [address] [place] [address] documented in this encounter Visit Diagnoses Diagnosis Exposure to SARS-associated coronavirus- Primary documented in this encounter Additional Health Concerns Infection Onset Date Last Indicated Resolved Time CoV-Exposed Comment:Recent close contact 06/26/2020 06/26/2020 07/10/2020 4:56 AM EDT documented as of this encounter Care Teams Director Of Enterprise Architecture Relationship Specialty Start Date End Date Juan David Landis MD [address] [place] [address] [address] [place] [address] PCP - General 12/04/17 documented as of this encounter Additional Source Comments The information contained in this document represents components of the legal health record. It is not the complete legal health record.[facility]
--- OUTSIDE RECORDS SUMMARY | 2025-03-23 09:49 | XMS_ITS | Encounter Summary ---
Author Organization [facility] Address [address] [facility] [address] [place] [address] Phone Care Team Providers Care Health Diagnostics Teacher Name Role Phone Juan David Landis MD Primary Care Provider Encounter Details Date Type Department Care Team (Late st Contact Info) Description 07/08/2024 Ancillary Orders [facility], X-Ray - [address] [place] [address] Mainor Valdivia PA [address] [place] [address] Right shoulder pain, unspecified chronicity (Primary Dx) [...] chronicity documented in this encounter Care Teams Health Diagnostics Teacher Relationship Specialty Start Date End Date Juan David Landis MD [address] [place] [address] [address] [place] [address] PCP - General 12/04/17 documented as of this encounter Additional Source Comments The information contained in this document represents components of the legal health record. It is not the complete legal health record.[facility]
--- OUTSIDE RECORDS SUMMARY | 2025-03-23 09:49 | XMS_ITS | Encounter Summary ---
Author Organization [facility] Address [address] [place] [address] Phone Care Team Providers Care Insole Reinforcer Name Role Phone Tita Carrillo MD Primary Care Provider [phone] Reason for Visit * Reason Onset Date Comments Med Refill 03/11/2019 Encounter Details Date Type Department Care Team (Late st Contact Info) Description 03/11/2019 Refill [facility], [address] [place] [address] Tita Carrillo MD [address] [place] [address] [address] [place] [address] Menorrhagia with irregular cycle Social History Tobacco [...] extended period of time, request forwarded to [facility] provider documented in this encounter Plan of Treatment Not on file documented as of this encounter Visit Diagnoses Diagnosis Menorrhagia with irregular cycle documented in this encounter Care Teams Insole Reinforcer Relationship Specialty Start Date End Date Tita Carrillo MD [address] [place] [address] [address] [place] [address] PCP - General Pediatrics 04/22/18 10/24/20 documented as of this encounter
[2025-03-23 17:48] LABS: Appearance Urine Cloudy; Color Urine Yellow; Glucose Urine UA Negative (Negative); Leukocyte Esterase Urine Negative (Negative); Nitrite Urine Negative (Negative); Specific Gravity - Urine 1.025 (1.005-1.025); UMIC TRIGGER UA YES; Urine Blood Negative (Negative); Urine Ketones Trace mg/dL (Negative); Urine Protein 100 (2+) mg/dL (Neg-Trace)
[2025-03-23 17:51] LABS: Bacteria Urine None Seen (None Seen); Hyaline Casts Urine 0-2 /LPF (0-2); RBC Urine 0-2 /HPF (0-2); Squamous Epithelial Cell Urine 0-2 /HPF (0-2); WBC Urine 0-5 /HPF (0-5)
[2025-03-23 17:53] LABS: MANUAL DIFF FLAG NO
[2025-03-23 18:02] LABS: Basophils Percent Auto 0.9 % (0-2); Eosinophils Percent Auto 1.2 % (0-4); Hematocrit 39.9 % (37.0-47.0); Hemoglobin 13.4 g/dl (12.0-16.0); Imm Gran Abs Auto 0.02 X10*3/uL (0.00-0.03); Imm Gran Pct Auto 0.6 % (0.0-0.4); Lymphocytes Absolute Auto 0.7 X10*3/uL (1.2-4.9); Lymphocytes Percent Auto 20.2 % (20-40); Mean Corpuscular HGB Conc 33.6 g/dl (31.0-35.0); Mean Corpuscular Hemoglobin 31.7 pg (27.0-33.0); Mean Corpuscular Volume 94.3 fL (80.0-98.0); Mean Platelet Volume 9.6 fL (9.4-12.3); Monocytes Absolute Auto 0.4 X10*3/uL (0.1-1.2); Monocytes Percent Auto 12.2 % (2-11); Neutrophils Absolute Auto 2.2 x10*3/uL (2.0-8.3); Neutrophils Percent Auto 64.9 % (45-73); Platelet Count 339 X10*3/uL (160-400); Red Blood Count 4.23 X10*6/uL (4.20-5.50); Red Cell Distribution Width 12.3 % (11.0-16.0); White Blood Count 3.4 X10*3/uL (4.8-10.8)
[2025-03-23 18:15] LABS: Alanine Aminotransferase 50 U/L (0-31); Aspartate Amino Transferase 35 U/L (5-31); C Reactive Protein < 0.10 mg/dL (< or = 0.50); Estimated Glomerular Filt Rate > 60
[2025-03-23 18:34] LABS: Creatinine Urine 213.72 mg/dL; Protein/Creatinine Ratio, Ur 0.51 (<0.2); Total Protein Urine Random 110 mg/dL (<12)
[2025-03-23 18:56] LABS: Erythrocyte Sedimentation Rate 8 MM/HR (0-20)
[2025-03-24 13:49] LABS: Anti DNA DS Antibody <1 IU/mL
[2025-03-24 23:19] LABS: Complement C3 135 mg/dL (83-193)
== END 2025-03-23 08:25 | disposition home or self-care (01) ==
LOC: HO.HKASLDS 08:24
PROVIDERS: PCP Internal Medicine Rheumatology; Visit Provider Internal Medicine Rheumatology
DX: M35.1 Other overlap syndromes (principal); Z79.60 Long term (current) use of unspecified immunomodulators and immunosuppressants
CPT/HCPCS: 36415; 81001; 82565; 82570; 84156; 84450; 84460; 85025; 85652; 86140; 86160; 86225

== ENCOUNTER 2025-05-03 15:53 | Outpatient (REF) | payer OTHER, SELFPAY ==
--- OUTSIDE RECORDS SUMMARY | 2025-05-03 17:04 | XMS_ITS | Encounter Summary ---
Author Organization [facility] Address [address] [place] [address] Phone Care Team Providers Care Shaft Mechanic Name Role Phone Tita Carrillo MD Primary Care Provider [phone] Reason for Visit * Reason Onset Date Comments Med Refill 05/19/2018 Encounter Details Date Type Department Care Team (Late st Contact Info) Description 05/19/2018 Refill [facility], [facility] [address] [address] [place] [address] Tita Carrillo MD [address] [place] [address] [address] [place] [address] Menorrhagia with irregular cycle Social History Tobacco [...] pharmacy: [id number] [address] [facility] Delivery method: Pickup Preferred pick-up date and time: 05/19/2018 4:00 PM Comment: documented in this encounter Plan of Treatment Not on file documented as of this encounter Visit Diagnoses Diagnosis Menorrhagia with irregular cycle documented in this encounter Care Teams Shaft Mechanic Relationship Specialty Start Date End Date Tita Carrillo MD [address] [place] [address] [address] [place] [address] PCP - General Pediatrics 04/22/18 10/24/20 documented as of this encounter
[2025-05-03 18:47] LABS: Appearance Urine Clear; Color Urine Yellow; Glucose Urine UA Negative (Negative); Leukocyte Esterase Urine Negative (Negative); Nitrite Urine Negative (Negative); PH 7.5 (5.0-9.0); Specific Gravity - Urine 1.015 (1.005-1.025); UMIC TRIGGER UA YES; Urine Blood Trace (Negative); Urine Ketones Negative (Negative); Urine Protein Trace mg/dL (Neg-Trace)
[2025-05-03 18:51] LABS: Bacteria Urine None Seen (None Seen); Hyaline Casts Urine 0-2 /LPF (0-2); RBC Urine 0-2 /HPF (0-2); Squamous Epithelial Cell Urine 0-2 /HPF (0-2); WBC Urine 0-5 /HPF (0-5)
[2025-05-03 19:02] LABS: Alanine Aminotransferase 25 U/L (0-31); Albumin Level 4.4 g/dL (3.5-5.0); Alkaline Phosphatase 86 U/L (39-117); Aspartate Amino Transferase 27 U/L (5-31); Bilirubin Direct 0.2 mg/dL (0.0-0.5); Bilirubin Total 0.4 mg/dL (0.0-1.0); Total Protein 6.9 g/dL (6.5-8.0)
[2025-05-03 19:08] LABS: Creatinine Urine 106.77 mg/dL; Protein/Creatinine Ratio, Ur 0.21 (<0.2); Total Protein Urine Random 22 mg/dL (<12)
== END 2025-05-03 15:54 | disposition home or self-care (01) ==
LOC: HO.HKASLDS 15:53
PROVIDERS: Visit Provider Internal Medicine Rheumatology
DX: M35.1 Other overlap syndromes (principal); R74.01 Elevation of levels of liver transaminase levels
CPT/HCPCS: 36415; 80076; 81001; 82570; 84156

== ENCOUNTER 2025-08-09 14:16 | Outpatient (AMB) | payer BC, SELFPAY ==
--- NOTE | 2025-08-09 14:18 | MHC.OFFVIS ---
Vital Signs 08/09/25 14:19 Height 5 ft 6 in Weight 172 lb 9.951 oz BMI 27.9 BP 120/80 Blood Pressure Location Rt brachial Position Sitting Pulse 83 Pulse Source Pulse Oximeter Pulse Oximetry (%) 100 Oxygen Delivery Method Room Air Intake Visit Reasons: follow up Intake Note: Patient presents for follow up on Raynaud's today. Accompanied by: Self / Same As Patient Allergies No Known Allergies Allergy (Verified 08/09/25 14:27) HPI HPI follow up: Details: She is experiencing hand pain especially after repetitive activity with using the computer. Denies morning stiffness. Denies joint swelling, fevers, dyspnea, pleurisy, oral ulcers, urinary symptoms, myalgias. No recent infections. She has not had Benlysta infusion since May due to difficulty with scheduling the infusion. She reports she has called at least 4 times. She had an insurance change since last visit. She has not used sildenafil since January when Raynaud's was more active. At the time she was using sildenafil 20 mg b.i.d.. Denies recent episode of Raynaud's phenomenon. Physical Exam Vital Signs: Last Vital Signs Pulse 83 08/09/25 14:19 BP 120/80 08/09/25 14:19 Pulse Ox 100 08/09/25 14:19 Oxygen Delivery Method Room Air 08/09/25 14:19 BMI result Body Mass Index 27.9 Const Other: General: Comfortable CVS: RRR Respiratory: clear to auscultation bilaterally. Good respiratory effort Skin: No lesions seen MSK: Tender right 2nd to 5th MCP. Chronic synovial thickening of bilateral 2nd and 3rd MCPs. Normal range of motion of upper extremities and lower extremities. Assessment & Plan Assessment & Plan (1) Mixed connective tissue disease: Comment: Since being off of Benlysta since May 2025 due to insurance change, inflammatory arthritis has become active. She has developed chronic synovial thickening of MCPs and experiencing joint pain in MCPs, which is tolerable at this time. 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 Failed rituximab 2019. Previously treated with triple therapy with hydroxychloroquine, methotrexate and Benlysta from 2020 to present. Hydroxychloroquine restarted 03/20/2024. She continued Benlysta and hydroxychloroquine. 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 She was given phone number for infusion center. Continue hydroxychloroquine 300 mg daily. Eye exam May 2024 OCT and visual field test OK. She has an appointment October 2025. Return to clinic in 3 months (2) Raynaud disease without gangrene: Comment: Controlled with sildenafil 20 mg daily or b.i.d. Rheumatology history: previously failed nifedipine. Code(s): I73.00 - Raynaud's syndrome without gangrene Category: Medical Plan: She will use sildenafil 20 mg b.i.d. when symptoms are active (3) affiliate marketing manager (current) use of non-steroidal anti-inflammatories (nsaid): Code(s): Z79.1 - affiliate marketing manager (current) use of non-steroidal anti-inflammatories (NSAID) Category: Medical Plan: See above Orders: Orders UA ClnCatch+Micro w/rflx Cult Today R76.0 - Raised antibody titer Alanine Aminotransferase Today R76.0 - Raised antibody titer Protein Creatinine Ratio, Ur Today R76.0 - Raised antibody titer C Reactive Protein Today R76.0 - Raised antibody titer Anti DNA DS Antibody Today R76.0 - Raised antibody titer Erythrocyte Sedimentation Rate Today R76.0 - Raised antibody titer Complement C3 Today R76.0 - Raised antibody titer Complement C4 Today R76.0 - Raised antibody titer Complete Blood Count Auto Diff Today R76.0 - Raised antibody titer Aspartate Amino Transferase Today R76.0 - Raised antibody titer Creatinine Today R76.0 - Raised antibody titer Sm Sm/CORPORATE ANALYST Antibodies Today R76.0 - Raised antibody titer Medications: Changed From hydroxychloroquine 300 mg (1.5 x 200 mg) PO DAILY 135 tabs 1RF To hydroxychloroquine 300 mg (1.5 x 200 mg) PO DAILY 135 tabs 1RF 90 days Coding Level of Care Code Est Pt Level 4 (93439) Complex EM visit Add On G2211 Diagnoses Mixed connective tissue disease M35.1 Raynaud disease without gangrene I73.00 affiliate marketing manager (current) use of non-steroidal anti-inflammatories (nsaid) Z79.1
[2025-08-09 14:19] VITALS: BP 120/80; PULSE 83; O2SAT 100; BMI 27.9
--- OUTSIDE RECORDS SUMMARY | 2025-08-09 16:50 | XMS_ITS | Encounter Summary ---
Author Organization [facility] Address [address] [place] [address] Care Team Providers Care Mat Machine Operator Name Role Phone Addi Sy MD Primary Care Provider [phone] Tao Anders MD Unavailable [phone] Meredith Gustafson MD PhD Unavailable [phone] Encounter Details Date Type Department Care Team (Late st Contact Info) Description 11/14/2022 Telephone [facility] Pediatric Rheumatology - [address] [id number] Tao Anders MD [address] [place] [address] Social History Tobacco Use Types Packs/Day Years Used Date Smoking Tobacco: Never Smokeless Tobacco: Never Comments:no smoking in house hold Interpersonal Safety Answer Date Record ed Physically Hurt Never 07/10/2020 Verbally Threaten Not on file 07/10/2020 Comments No Sex and Gender Information Value Date Recorded Sex Assigned at Not on file Legal Sex Female 16:44 EDT Gender Identity Female 07/28/2020 11:06 EDT Sexual Orientation Not on file documented as of this encounter Miscellaneous Notes * Telephone Encounter - Laina Dominguez - 11/14/2022 1321 EST Left msg To schedule a fur zoom meeting documented in this encounter Plan of Treatment Not on file documented as of this encounter Visit Diagnoses Not on filedocumented in this encounter Care Teams Mat Machine Operator Relationship Specialty Start Date End Date Addi Sy MD [address] [place] [phone] PCP - General Family Medicine - Primary Care 07/28/20 Tao Anders MD [address] [place] [phone] Consulting Clinician Pediatric Rheumatology 09/27/21 Meredith Gustafson MD PhD [address] [place] [phone] Consulting Clinician Pediatric Rheumatology 10/18/21 documented as of this encounter
--- OUTSIDE RECORDS SUMMARY | 2025-08-09 16:50 | XMS_ITS | Encounter Summary ---
Author Organization [facility] Address [address] [facility] [address] [place] [address] Phone Care Team Providers Care Pattern Drum Maker Name Role Phone Juan David Landis MD Primary Care Provider Encounter Details Date Type Department Care Team (Late st Contact Info) Description 05/31/2025 Transcribe Orders Virtual Department [address] [place] [address] Addi Sy MD [address] [place] [address] [email or web address] Abnormal uterine and vaginal bleeding, unspecified (Primary Dx) Social History Tobacco Use Types [...] with a working camera? Not on file Comments Unknown Sex and Gender Information Value Date Recorded Sex Assigned at Not on file Legal Sex Female 8:45 PM EDT Gender Identity Not on file Sexual Orientation Not on file documented as of this encounter Plan of Treatment Not on file documented as of this encounter Results * US PELVIS TRANSABDOMINAL PLUS TRANSVAGINAL (06/16/2025 1:35 PM EDT) Anatomical Region Laterality Modality Pelvis, Uterus/Adnexa Ultrasound 06/16/2025 3:44 PM EDT Impressions 06/16/2025 3:46 PM EDT 1. Intrauterine device at expected location within the endometrium. 2. Sonographic appearance of the bilateral ovaries within normal limits Narrative 06/16/2025 3:46 PM EDT US PELVIS TRANSABDOMINAL AND TRANSVAGINAL Referring clinician's provided indication for this examination in [facility]: Outside Radiology Order; abnormal vagianl bleeding TECHNIQUE: Pelvic Ultrasound Transabdominal performed for global imaging of the pelvis. Pelvic Ultrasound Transvaginal performed for detailed imaging of the endometrium and/or adnexa. COMPARISON: There is no prior study available for comparison. FINDINGS: Uterus: Size: 7.4 x 2.6 x 3.7 cm. Orientation: anteverted Myometrium: Normal. Endometrium: Normal. Intrauterine device at expected location within the endometrium. Thickness: 2 mm. Right adnexa: Ovary: Normal. The right ovary measures 2.4 x 2.0 x 2.9 cm. No evidence of solid mass or cyst greater than 3 cm. There is normal color Doppler flow to the ovary. Left adnexa: Ovary: Normal. The left ovary measures 2.4 x 1.1 x 1.6 cm. No evidence of solid mass or cyst greater than 3 cm. There is normal color Doppler flow to the ovary. Free fluid: No significant free fluid. Procedure Note Brenna Sullivan MD - 06/16/2025 US PELVIS TRANSABDOMINAL AND TRANSVAGINAL Referring clinician's provided indication for this examination in [facility]:Outside Radiology Order; abnormal vagianl bleeding TECHNIQUE: Pelvic Ultrasound Transabdominal performed for global imagingof the pelvis. Pelvic Ultrasound Transvaginal performed for detailedimaging of the endometrium and/or adnexa. COMPARISON: There is no prior study available for comparison. FINDINGS: Uterus: Size: 7.4 x 2.6 x 3.7 cm. Orientation: anteverted Myometrium: Normal. Endometrium: Normal. Intrauterine device at expected location within theendometrium. Thickness: 2 mm. Right adnexa: Ovary: Normal. The right ovary measures 2.4 x 2.0 x 2.9 cm. No evidence of solidmass or cyst greater than 3 cm. There is normal color Doppler flow to theovary. Left adnexa: Ovary: Normal. The left ovary measures 2.4 x 1.1 x 1.6 cm. No evidence of solidmass or cyst greater than 3 cm. There is normal color Doppler flow to theovary. Free fluid: No significant free fluid. IMPRESSION: 1. Intrauterine device at expected location within the endometrium. 2. Sonographic appearance of the bilateral ovaries within normal limits us Addi Sy MD IMG US PELVIS Final Result documented in this encounter Visit Diagnoses Diagnosis Abnormal uterine and vaginal bleeding, unspecified- Primary Abnormal uterine and vaginal bleeding, unspecified documented in this encounter Care Teams Pattern Drum Maker Relationship Specialty Start Date End Date Juan David Landis MD [address] [place] [address] [address] [place] [address] PCP - General 12/04/17 documented as of this encounter Additional Source Comments The information contained in this document represents components of the legal health record. It is not the complete legal health record.[facility]
--- OUTSIDE RECORDS SUMMARY | 2025-08-09 16:50 | XMS_ITS | Encounter Summary ---
Author Organization [facility] Address [address] [place] [address] Phone Care Team Providers Care Paste Up Copy Camera Operator Name Role Phone Tita Carrillo MD Primary Care Provider [phone] Reason for Visit * Reason Comments Med Refill Encounter Details Date Type Department Care Team (Late st Contact Info) Description 08/26/2019 Refill [facility], [facility] [address] [address] [place] [address] Tita Carrillo MD [address] [place] [address] [address] [place] [address] Menorrhagia with irregular cycle Social History Tobacco [...] cycle documented in this encounter Care Teams Paste Up Copy Camera Operator Relationship Specialty Start Date End Date Tita Carrillo MD [address] [place] [address] [address] [place] [address] PCP - General Pediatrics 04/22/18 10/24/20 documented as of this encounter
--- OUTSIDE RECORDS SUMMARY | 2025-08-09 16:50 | XMS_ITS | Encounter Summary ---
Author Organization [facility] Address [address] [place] [address] Phone Care Team Providers Care Air Cargo Agent Name Role Phone Tita Carrillo MD Primary Care Provider [phone] Reason for Visit * Reason Onset Date Comments Med Refill 09/21/2018 Encounter Details Date Type Department Care Team (Late st Contact Info) Description 09/21/2018 Refill [facility], [facility] [address] [address] [place] [address] Tita Carrillo MD [address] [place] [address] [address] [place] [address] Menorrhagia with irregular cycle Social History Tobacco [...] [Tita Carrillo MD] Preferred pharmacy: [id number] - [place], [place] - [address] [facility] Delivery method: Pickup Preferred pick-up date and time: 09/22/2018 5:00 PM Comment: documented in this encounter Plan of Treatment Not on file documented as of this encounter Visit Diagnoses Diagnosis Menorrhagia with irregular cycle documented in this encounter Care Teams Air Cargo Agent Relationship Specialty Start Date End Date Tita Carrillo MD [address] [place] [address] [address] [place] [address] PCP - General Pediatrics 04/22/18 10/24/20 documented as of this encounter
--- OUTSIDE RECORDS SUMMARY | 2025-08-09 16:50 | XMS_ITS | Encounter Summary ---
Author Organization [facility] Address [address] [place] [address] Phone Care Team Providers Care Biology Intern Name Role Phone Juan David Landis MD Primary Care Provider Encounter Details Date Type Department Care Team (Late st Contact Info) Description 06/26/2020 Transcribe Orders Virtual Department [address] [place] [phone] Lu Chopra PA [address] [place] [phone] [email or web address] Exposure to SARS-associated coronavirus (Primary Dx) Social [...] 11:17 AM EDT) Specimen Source NASOPHARYNGEAL SWAB (WEB SITE MANAGER) [facility] COVID-19 Comment POSSIBLE EXPOSURE [facility] COVID Testing Status Sent to [facility] Micro Lab [facility] Other 06/28/2020 11:1 7 AM EDT 06/28/2020 11:28 AM EDT us Lu CHOWDARY BODY FLUIDS AND STOOLS O RDERABLES Final Result [facility] [address] [place] [address] documented in this encounter Visit Diagnoses Diagnosis Exposure to SARS-associated coronavirus- Primary documented in this encounter Additional Health Concerns Infection Onset Date Last Indicated Resolved Time CoV-Exposed Comment:Recent close contact 06/26/2020 06/26/2020 07/10/2020 4:56 AM EDT documented as of this encounter Care Teams Biology Intern Relationship Specialty Start Date End Date Juan David Landis MD [address] [place] [address] [address] [place] [address] PCP - General 12/04/17 documented as of this encounter Additional Source Comments The information contained in this document represents components of the legal health record. It is not the complete legal health record.[facility]
--- OUTSIDE RECORDS SUMMARY | 2025-08-09 16:50 | XMS_ITS | Encounter Summary ---
Author Organization [facility] Address [address] [place] [address] Phone Care Team Providers Care Security Trainer Name Role Phone Tita Carrillo MD Primary Care Provider [phone] Encounter Details Date Type Department Care Team (Late st Contact Info) Description 09/20/2010 Nurse Only [address] [address] Social History Tobacco Use Types Packs/Day Years [...] 2010 10:07 am Provider: Susannah Dunlap RN (Drug Coordinator: Snow Diaz MD; Java Developer With Security Clearance: Susannah Dunlap RN) Location: [facility]. ECTIVE: CC: She is here for the [...] CAPTURE: Primary Diagnosis: V0 Flu Clinic Orders: 99002 Influenza virus vaccine, split virus, preservative free, > 3 years, for intramuscular use [id number] Immunization administration (includes percutaneous, intradermal, subcutaneous or intramuscular injec ADDENDUMS: Addendum: 09/20/2010 05:01 PM - Susannah Dunlap Flu is UTD. Does Not need a 2nd Dose. documented in this encounter Plan of Treatment Not on file documented as of this encounter Visit Diagnoses Not on filedocumented in this encounter Care Teams Security Trainer Relationship Specialty Start Date End Date Tita Carrillo MD [address] [place] [address] [address] [place] [address] PCP - General Pediatrics 04/22/18 10/24/20 documented as of this encounter
--- OUTSIDE RECORDS SUMMARY | 2025-08-09 16:50 | XMS_ITS | Clinical Summary ---
Author Organization [facility] Address [address] [place] [address] Phone Care Team Providers Care Community Outreach Director Name Role Phone Juan David Landis MD Primary Care Provider Encounters Date Type Department Care Team Description 06/16/2025 12:36 PM EDT - 06/16/2025 11:59 PM EDT Hospital Encounter [address] [place] [address] Addi Sy MD Discharge Disposition: Home or Self Care 05/31/2025 Transcribe Orders Virtual Department [address] [place] [address] Addi Sy MD Abnormal uterine and vaginal bleeding, unspecified (Primary Dx) from Last 3 Months Social History Tobacco Use Types Packs/Day Years [...] on file Medical Devices Not on file Procedures Procedure Name Priority Date/Time Associated Diagnosis Comments US PELVIS TRANSABDOMINAL PLUS TRANSVAGINAL Routine 06/16/2025 1:35 PM EDT Abnormal uterine and vaginal bleeding, unspecified from Last 3 Months Results * US PELVIS TRANSABDOMINAL PLUS TRANSVAGINAL [...] provided indication for this examination in Epic: Outside Radiology Order; abnormal vagianl bleeding TECHNIQUE: [...] clinician's provided indication for this examination in [facility]:Outside Radiology Order; abnormal vagianl bleeding TECHNIQUE: [...] of the bilateral ovaries within normal limits Addi Sy MD IMG US PELVIS Final Result from Last 3 Months Insurance [facility] [place] [address] [place] [address] [address] [place] [address] PPO EPO [facility] PPO EPO [facility] PPO EPO Member Subscriber Plan / Payer (Ef fective 2025-Present) Name:Maria D Raman Relation to Subscriber:Child Name:CIRSPIN RAMAN Date of :1898 Address: [address] [place] [address] Payer ID:[id number] (NAIC) Type:PPO Address: [address] [place], [place] [facility] PPO EPO Care Teams Community Outreach Director Relationship Specialty Start Date End Date Juan David Landis MD [address] [place] [address] [address] [place] [address] PCP - General 12/04/17 Additional Source Comments The information contained in this document represents components of the legal health record. It is not the complete legal health record.[facility]
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
--- OUTSIDE RECORDS SUMMARY | 2025-08-09 16:50 | XMS_ITS | Clinical Summary ---
Author Organization [facility] Address [address] [place] [address] Care Team Providers Care Obiee Obia Solution Architect Name Role Phone Addi Sy MD Primary Care Provider [phone] Toa Anders MD Unavailable [phone] Meredith Gustafson MD PhD Unavailable [phone] Allergies No known active allergies Medications albuterol 90 mcg/actuation inhaler Inhale 2 Puffs as directed every 4 hours as needed. 04/19/2019 Active VITAMIN D3 50 mcg (2,000 unit) tablet Take 2,000 Units by mouth daily. 07/24/2020 Active diclofenac (VOLTAREN) 75 mg EC tablet Take 75 mg by mouth daily. 07/10/2020 Active dicyclomine (BENTYL) 10 mg capsule Take 10 mg by mouth 2 times daily. 07/01/2020 Active folic acid (FOLVITE) 1 mg tablet Take 1 mg by mouth daily. 07/14/2020 Active hydrOXYchloroQU INE (PLAQUENIL) 200 mg tablet Take 400 mg by mouth daily. 07/14/2020 Active methotrexate sodium/PF (METHOTREXATE, PF,) 25 mg/mL injection 25 mg once a week. 07/14/2020 Active NIFEdipine ER (ADALAT CC) 60 mg tablet Take 60 mg by mouth at bedtime. 05/05/2020 Active omeprazole (PRILOSEC) 20 mg capsule Take 20 mg by mouth daily. 07/04/2020 Active predniSONE (DELTASONE) 5 mg tablet Take 5 mg by mouth daily. 07/14/2020 Active JUNEL 1.5/30, 21, 1.5-30 mg-mcg tablet Take 1 Tab by mouth daily. 06/27/2020 Active sulfamethoxazol e-trimethoprim (BACTRIM) 400-80 mg per tablet Take 1 Tab by mouth daily. 07/21/2020 Active fluticasone propionate (FLOVENT HFA INHALATION) Inhale 2 Puffs as directed as needed. Active sodium chloride 0.9 % parenteral solution 250 mL with belimumab 120 mg recon soln 10 mg/kg Inject 10 mg/kg into the vein once. Active sodium chloride 0.9 % parenteral solution 250 mL with belimumab 120 mg recon soln 10 mg/kg Inject 10 mg/kg into the vein once. Active famotidine (PEPCID) 40 mg tablet Take 40 mg by mouth daily. 07/05/2021 Active Active Problems Problem Noted Date Diagnosed Date Counseling for transition fr om pediatric to adult care provider 10/10/2021 MCTD (mixed connective tissue disease) 0 Raynaud disease 10/06/2019 Overview (10/10/2021): Last Assessment & Plan: Started on nifedipine after ER visit and consult with Dr. Lowe. Seems to be helping. Social History Tobacco Use Types Packs/Day Years [...] 11:06 EDT Sexual Orientation Not on file Obstetrics History Last Filed Vital Signs Vital Sign Reading Time Taken Comments Blood Pressure 130/72 10/10/2021 1246 EST Pulse 100 10/10/2021 1246 EST Temperature 36.8 C (98.2 F) 10/10/2021 1246 EST Respiratory Rate - - Oxygen Saturation - - Inhaled Oxygen Concentration - - Weight 73.7 kg (162 lb 7.7 oz) 10/10/[address] Height 167.8 cm (5' 6.06 ) 10/10/2021 1246 EST Body Mass Index 26.17 10/10/2021 1246 EST Plan of Treatment Health Maintenance Due Date Last Done Comments Hepatitis C Screen 2002 Hepatitis B Vaccine (1 of 3 - 19+ 3-dose series) 08/20 COVID-19 Vaccine ( season) 2024 Insurance Care Teams Obiee Obia Solution Architect Relationship Specialty Start Date End Date Addi Sy MD [address] [place] [phone] PCP - General Family Medicine - Primary Care 07/28/20 Tao Anders MD [address] [place] [phone] Consulting Clinician Pediatric Rheumatology 09/27/21 Meredith Gustafson MD PhD [address] [place] [phone] Consulting Clinician Pediatric Rheumatology 10/18/21
--- OUTSIDE RECORDS SUMMARY | 2025-08-09 16:50 | XMS_ITS | Encounter Summary ---
Author Organization [facility] Address [address] [place] [address] Phone Care Team Providers Care Mail Handler Equipment Operator Name Role Phone Tita Carrillo MD Primary Care Provider [phone] Encounter Details Date Type Department Care Team (Late st Contact Info) Description 03/28/2017 Documentation [facility], [address] [place] [address] Peggy Bethea [place] Social History Tobacco Use [...] on filedocumented in this encounter Care Teams Mail Handler Equipment Operator Relationship Specialty Start Date End Date Tiat Carrillo MD [address] [place] [address] [address] [place] [address] PCP - General Pediatrics 04/22/18 10/24/20 documented as of this encounter
--- OUTSIDE RECORDS SUMMARY | 2025-08-09 16:50 | XMS_ITS | Encounter Summary ---
Author Organization [facility] Address [address] [place] [address] Phone Care Team Providers Care Real Estate Officer Name Role Phone Juan David Landis MD Primary Care Provider Encounter Details Date Type Department Care Team (Late st Contact Info) Description 07/08/2024 Ancillary Orders [facility], X-Ray - [address] [place] [address] Mainor Valdivia PA [address] [place] [address] Right shoulder pain, unspecified chronicity (Primary Dx) [...] joint. IMPRESSION: No fracture or dislocation. Mainor CHOWDARY IMG XR UPPER EXTREMITY Final R esult documented in this encounter Visit Diagnoses Diagnosis Right shoulder pain, unspecified chronicity- Primary Right shoulder pain, unspecified chronicity documented in this encounter Care Teams Real Estate Officer Relationship Specialty Start Date End Date Juan David Landis MD [address] [place] [address] Dr [address] [place] [address] PCP - General 12/04/17 documented as of this encounter Additional Source Comments The information contained in this document represents components of the legal health record. It is not the complete legal health record.[facility]
--- OUTSIDE RECORDS SUMMARY | 2025-08-09 16:50 | XMS_ITS | Encounter Summary ---
Author Organization [facility] Address [address] [place] [address] Phone Care Team Providers Care Web Applications Developer Name Role Phone Tita Carrillo MD Primary Care Provider [phone] Reason for Visit * Reason Onset Date Comments Med Refill 03/11/2019 Encounter Details Date Type Department Care Team (Late st Contact Info) Description 03/11/2019 Refill [facility], [address] [place] [address] Tita Carrillo MD [address] [place] [address] [place] [address] Menorrhagia with irregular cycle Social History Tobacco [...] extended period of time, request forwarded to [facility] provider documented in this encounter Plan of Treatment Not on file documented as of this encounter Visit Diagnoses Diagnosis Menorrhagia with irregular cycle documented in this encounter Care Teams Web Applications Developer Relationship Specialty Start Date End Date Tita Carrillo MD [address] [place] [address] [address] [place] [address] PCP - General Pediatrics 04/22/18 10/24/20 documented as of this encounter
--- OUTSIDE RECORDS SUMMARY | 2025-08-09 16:50 | XMS_ITS | Encounter Summary ---
Author Organization [facility] Address [address] [place], [place] [phone] Phone Care Team Providers Care Human Intelligence Name Role Phone Tita Carrillo MD Primary Care Provider [phone] Encounter Details Date Type Department Care Team (Late st Contact Info) Description 07/18/2016 Orders Only [facility], [address] [place] [address] Social History Tobacco Use Types Packs/Day Years [...] on filedocumented in this encounter Care Teams Human Intelligence Relationship Specialty Start Date End Date Tita Carrillo MD [address] [place] [address] [address] [place] [address] PCP - General Pediatrics 04/22/18 10/24/20 documented as of this encounter
--- OUTSIDE RECORDS SUMMARY | 2025-08-09 16:50 | XMS_ITS | Encounter Summary ---
Author Organization [facility] Address [address] [place] [address] Phone Care Team Providers Care National Sales Associate Name Role Phone Tita Carrillo MD Primary Care Provider Reason for Visit * Reason Onset Date Comments Med Refill 05/19/2018 Encounter Details Date Type Department Care Team (Late st Contact Info) Description 05/19/2018 Refill [facility], [facility] [address] [address] [place] [address] Tita Carrillo MD [address] [place] [address] [address] [place] [address] Menorrhagia with irregular cycle Social History Tobacco [...] pharmacy: [id number] [address] [facility] Delivery method: Pickup Preferred pick-up date and time: 05/19/2018 4:00 PM Comment: documented in this encounter Plan of Treatment Not on file documented as of this encounter Visit Diagnoses Diagnosis Menorrhagia with irregular cycle documented in this encounter Care Teams National Sales Associate Relationship Specialty Start Date End Date Tita Carrillo MD [address] [place] [address] [address] [place] [address] PCP - General Pediatrics 04/22/18 10/24/20 documented as of this encounter
--- OUTSIDE RECORDS SUMMARY | 2025-08-09 16:50 | XMS_ITS | Encounter Summary ---
Author Organization [facility] Address [address] [place] [address] Care Team Providers Care Traffic I Manager Name Role Phone Addi Sy MD Primary Care Provider [phone] Tao Anders MD Unavailable [phone] Meredith Gustafson MD PhD Unavailable [phone] Reason for Visit * Reason Onset Date Comments Appointment Related 12/25/2022 Encounter Details Date Type Department Care Team (Late st Contact Info) Description 12/25/2022 Telephone [facility] Pediatric Rheumatology - [facility] [address] [place], [place] [phone] Tao Anders MD [address] [place] [phone] Appointment Related Social History Tobacco Use Types Packs/Day Years [...] * Telephone Encounter - Laina Dominguez - 12/25/2022 1500 EST Left msg to schedule a zoom fur documented in this encounter Plan of Treatment Not on file documented as of this encounter Visit Diagnoses Not on filedocumented in this encounter Care Teams Traffic I Manager Relationship Specialty Start Date End Date Addi Sy MD [address] [place] [phone] PCP - General Family Medicine - Primary Care 07/28/20 Tao Anders MD [address] [place] [phone] Consulting Clinician Pediatric Rheumatology 09/27/21 Meredith Gustafson MD PhD [address] [place] [phone] Consulting Clinician Pediatric Rheumatology 10/18/21 documented as of this encounter
== END 2025-08-09 15:00 | disposition home or self-care (01) ==
LOC: HO.RHES 14:16
PROVIDERS: PCP Internal Medicine Rheumatology; Visit Provider Internal Medicine Rheumatology
DX: M35.1 Other overlap syndromes (principal); I73.00 Raynaud's syndrome without gangrene; Z79.1 Long term (current) use of non-steroidal anti-inflammatories (NSAID)
CPT/HCPCS: 99214